=== PATIENT | male | born 1945 | race Caucasian/White ===

== ENCOUNTER 2022-04-20 11:28 | Outpatient (CLI) | payer MEDICARE, OTHER | END 2022-04-20 11:29 | disposition home or self-care (01) | LOC: RT 11:28 | PROVIDERS: ATTEND Internal Medicine Cardiovascular Disease | DX: I25.10 Atherosclerotic heart disease of native coronary artery without angina pectoris (principal); I50.9 Heart failure, unspecified | CPT/HCPCS: 93005 ==